=== PATIENT | female | born 2000 | race Asian ===

== ENCOUNTER 2022-11-29 05:01 | Emergency (ER) | payer BC, SELFPAY ==
[2022-11-29 05:08] VITALS: BP 121/73; PULSE 117; RESP 17; TEMP 37.4; O2SAT 96
--- NOTE | 2022-11-29 05:09 | ED.HA ---
HPI - Headache General Chief Complaint: Headache Stated Complaint: Migraine with Nausea Time Seen by Provider: 11/29/22 05:08 Source: patient Mode of arrival: ambulatory Limitations: no limitations History of Present Illness HPI Narrative: Patient with history of migraine headache been having headache since yesterday also feel congested with nausea and dizziness having body aches no cough patient already been vaccinated against COVID Related Data Previous Rx's Medication Instructions Recorded [id number]-prxzooktuccjt-nkxmbkis 1 cap PO Q6H PRN headache #20 caps 11/29/22 50 mg-300 mg-40 mg capsule (Fioricet) ondansetron 4 mg disintegrating 4 mg PO Q6-8H PRN nausea and 11/29/22 tablet vomiting #10 tabs sumatriptan succinate 50 mg tablet 50 mg PO Q2H PRN migraine headache 11/29/22 (Imitrex) #10 tabs Allergies Allergy/AdvReac Type Severity Reaction Status Date / Time No Known Allergies Allergy Verified 11/29/22 05:09 Review of Systems Review of Systems: Yes all other systems are reviewed and are negative [facility] Social History Social History Alcohol intake: never Smoked in Last 30 Days: No Use of substances other than those prescribed or required for medical reasons: No Advance Directives: No Patient : No Physical Exam Vital Signs: Vital Signs: Last Vital Signs Temp 99.4 F 11/29/22 05:12 Pulse 102 H 11/29/22 05:12 Resp 20 11/29/22 05:12 BP 121/73 11/29/22 05:12 Pulse Ox 97 11/29/22 05:12 O2 Del Method 11/29/22 05:12 BMI result Body Mass Index 21.8 Appearance: Alert. Oriented X3. No acute distress. Eyes: PERRLA, photosensitive ENT: Pharynx normal. Oral Mucosa moist Neck: Normal inspection. Neck supple. CVS: Normal heart rate and rhythm. Pulses normal. Respiratory: No respiratory distress. Equal air entry bilateral, no wheezing/rales/rhonchi Abdomen: Soft and nontender. Bowel sounds are present, no mass palpable, no CVA tenderness Skin: Skin warm and dry. Normal skin color. Normal skin turgor. Extremities: No lower extremity edema. No calf tenderness Neuro: Oriented X 3. No motor deficit. No sensory deficit.No cerebellar signs , cranial nerves II-XII intact Medications Administered Discontinued Medications Generic Name Dose Route Start Last Admin Trade Name Freq PRN Reason Stop Dose Admin Acetaminophen/Butalbital/Caffeine 1 tab 11/29/22 06:12 11/29/22 06:17 Butalb/Acetamin/Caff 50/325/40 Tablet PO 11/29/22 06:13 1 tab ONCE ONE Administration Ondansetron HCl 4 mg 11/29/22 05:09 11/29/22 05:28 Ondansetron Odt 4 Mg Tab.Rapdis TRANSLINGU 11/29/22 05:10 4 mg ONCE ONE Administration Sumatriptan Succinate 6 mg 11/29/22 05:09 11/29/22 05:29 Sumatriptan Succinate 6 Mg/0.5 Ml Vial SUBCUT 11/29/22 05:10 6 mg ONCE ONE Administration Medical Decision Making Medical Decision Making MDM Narrative: Patient felt better after Imitrex will discharge patient home on Imitrex and Fioricet Lab Data [facility] Lab Attestation statement: I reviewed the patient's lab results. Labs: Lab Results 11/29/22 11/29/22 Range/Units 05:19 05:19 COVID-19 (MICHELINE) Positive A (Negative) COVID-19 Clin Com See Note Influenza Type A (AYDIN) Negative (Negative) Influenza Type B (AYDIN) Negative (Negative) Influenza A & B Note See Note Discharge Plan Discharge Clinical Impression: Migraine, COVID-19 Patient Disposition: Home, Self-Care Instructions: Migraine Headache (ED), COVID-19 (Coronavirus Disease 2019) (ED) Additional Instructions: Social distancing advise Medication as prescribed for headache Prescriptions: New sumatriptan succinate [Imitrex] 50 mg tablet 50 mg PO Q2H PRN (Reason: migraine headache) Qty: 10 0RF Rx Instructions: do not exceed 2 doses per 24 hrs iudvfasird-dolixgwtfwojo-wxsg [Fioricet] 50-300-40 mg capsule 1 cap PO Q6H PRN (Reason: headache) Qty: 20 0RF ondansetron 4 mg tablet,disintegrating 4 mg PO Q6-8H PRN (Reason: nausea and vomiting) Qty: 10 0RF Stand Alone Forms: Work/School Release Interventions: ED Discharge Assessment Last Done: 11/29/22 06:27 Discharge Date/Time: 11/29/22 06:28
[2022-11-29 05:12] VITALS: BP 121/73; BP 130/88; PULSE 102; PULSE 82; RESP 20; TEMP 37.4; O2SAT 100; O2SAT 97; BMI 21.8
[2022-11-29] MEDS: Ondansetron ODT 4 MG TAB.RAPDIS TRANSLINGU (05:28)
[2022-11-29] MEDS: SUMAtriptan succinate 6 MG/0.5 ML VIAL SUBCUT (05:29)
[2022-11-29 05:37] LABS: COVID-19 Test Positive (Negative); IDNOW Serial# BCCEAD1C
[2022-11-29 05:41] LABS: IDNOW Serial# 16C4AD1C; Influenza A Negative (Negative); Influenza B2 Negative (Negative)
[2022-11-29] MEDS: Butalb/Acetamin/Caff 50/325/40 TABLET 1 TAB PO (06:17)
--- NOTE | 2022-11-29 06:22 | PC.NURSE ---
Pt. resting quietly in bed. Pt. reports continued headache with little to no relief from the imitrex. Pt. medicated with fiorecet per JAN. Pt. pending d/c at this time.
== END 2022-11-29 06:28 | disposition home or self-care (01) ==
PROVIDERS: Emergency Provider Internal Medicine
DX: U07.1 COVID-19 (principal); G43.909 Migraine, unspecified, not intractable, without status migrainosus
CPT/HCPCS: 87502; 87635; 96372; 99284; J3030

== ENCOUNTER 2024-08-11 00:14 | Emergency (ER) | payer BC, SELFPAY ==
[2024-08-11 00:18] VITALS: BP 100/70; PULSE 90; O2SAT 99
[2024-08-11 00:20] VITALS: BP 128/78; PULSE 110; RESP 18; TEMP 37.4; O2SAT 98; BMI 20.6
[2024-08-11 01:10] LABS: Influenza A PCR NEGATIVE (Negative); Influenza B PCR NEGATIVE (Negative); Resp Syncy Virus RNA Qual PCR NEGATIVE (Negative); SARS COV2 PCR INHOUSE NEGATIVE (Negative)
[2024-08-11 01:51] VITALS: BP 120/68; PULSE 110; RESP 16; TEMP 37.1; O2SAT 95
--- NOTE | 2024-08-11 04:50 | ED.URI ---
HPI - URI/Sore Throat General Chief Complaint: Upper Respiratory Symptoms Stated Complaint: COVID FLU LIKE SYMTOMS Time Seen by Provider: 08/11/24 04:40 Source: patient Mode of arrival: ambulatory Limitations: no limitations History of Present Illness ED Provider: Dr. Ruchi Tay HPI Narrative: Patient comes to emergency room complaining of URI symptoms, including sore throat, bilateral eye irritation, generalized malaise. Complaining of nausea, no vomiting or diarrhea. Related Data Previous Rx's ?Medication ?Instructions ?Recorded ohzkbhkmqb-mdousohbrsjye-ojrxxzfj 1 cap PO Q6H PRN headache #20 caps 11/29/22 50 mg-300 mg-40 mg capsule (Fioricet) ondansetron 4 mg disintegrating 4 mg PO Q6-8H PRN nausea and 11/29/22 tablet vomiting #10 tabs sumatriptan succinate 50 mg tablet 50 mg PO Q2H PRN migraine headache 11/29/22 (Imitrex) #10 tabs ibuprofen 600 mg tablet 600 mg PO Q8H PRN fever or pain 08/11/24 #20 tabs ondansetron HCl 4 mg tablet 4 mg PO Q6H PRN nausea and 08/11/24 vomiting #14 tabs Allergies Allergy/AdvReac Type Severity Reaction Status Date / Time No Known Allergies Allergy Verified 08/11/24 00:21 Review of Systems Review of Systems: Constitutional : No Weight loss, No Fever, No Chills, No Night Sweats, No Fatigue, complaining of generalized malaise ENT/Mouth : No Hearing loss, No Ear Pain, denies nasal congestion, complaining of sore throat, Eyes: No Eye Pain, No Swelling, No Redness, No Foreign Body, No Discharge, No Vision Changes Cardiovascular : No Chest Pain, No SOB, No Dyspnea on Exertion, No Orthopnea, No Edema, No Palpitations Respiratory : No Cough, No Sputum, No Wheezing, No Smoke Exposure, No Dyspnea Gastrointestinal : No Nausea, No Vomiting, No Diarrhea, No Constipation, No abdominal Pain, No Hematochezia, No Melena Genitourinary : no irregular bleeding, No Dysuria, No Urinary Frequency, No Hematuria, No Urinary Incontinence, No Urgency, No Flank Pain, No Urinary Flow Changes, No Hesitancy Musculoskeletal : No joint pain, No Myalgias, No Joint Swelling Skin : No Skin Lesions, No rash Neuro : No Weakness, No Numbness, No Paresthesias, No Loss of Consciousness, No Dizziness, No Headache Psych : No Anxiety/Panic, No Depression, No SI/HI/AH/VH, No Social Issues, Heme/Lymph: No Bruising, No Bleeding,No Lymphadenopathy Endocrine : No Polyuria, No Polydipsia, No Temperature Intolerance PMF Social History Social History Alcohol intake: never Smoked in Last 30 Days: No Use of substances other than those prescribed or required for medical reasons: No Advance Directives: No Advance Directives Information Provided: No Do you have a plan to hurt others: No Plan Physical Exam Vital Signs: Vital Signs: Last Vital Signs Temp 98.3 F 08/11/24 04:57 Pulse 97 08/11/24 04:57 Resp 18 08/11/24 04:57 BP 100/56 L 08/11/24 04:57 Pulse Ox 99 08/11/24 05:00 O2 Del Method Room Air 08/11/24 05:00 BMI result Body Mass Index 20.6 Const: Other: Appearance: Alert. Oriented X3. No acute distress. Eyes: Pupils equal, round and reactive to light. ENT: Pharynx is erythematous, no obvious abscesses. Neck: Normal inspection. Neck supple. No lymph nodes noted. No crepitus CVS: Normal heart rate and rhythm. Pulses normal. Normal S1 and S2 Respiratory: No respiratory distress. Breath sounds normal. No Wheezing. No rales Abdomen: Soft and nontender. No rigidity. No distention. Skin: Skin warm and dry. Normal skin color. Normal skin turgor. Extremities: No lower extremity edema. No Lacerations. No Rash Neuro: Oriented X 3. No motor deficit. No sensory deficit. Moving all extremities. No slurred speech. CN 2 through 12 grossly intact Psych: calm, cooperative, normal affect Course Course Course Narrative: Patient was given acetaminophen, Zofran p.o. Medications Administered Discontinued Medications Generic Name Dose Route Start Last Admin Trade Name Freq PRN Reason Stop Dose Admin Acetaminophen 975 mg 08/11/24 04:47 08/11/24 04:53 Acetaminophen 325 Mg Tablet PO 08/11/24 04:48 975 mg ONCE ONE Administration Ondansetron HCl 4 mg 08/11/24 04:47 08/11/24 04:54 Ondansetron Odt 4 Mg Tab.Kristen VENCES 08/11/24 04:48 4 mg ONCE ONE Administration Medical Decision Making Medical Decision Making [facility] Narrative: My interpretation of labs, patient tested negative for flu, COVID and RSV, strep test negative -patient likely has a viral syndrome Differential Diagnosis Differential Diagnoses: The differential diagnosis associated with the presentation includes (Viral illness, strep, COVID) Lab Data [facility] Lab Attestation statement: I reviewed the patient's lab results. Labs: Lab Results 08/11/24 08/11/24 Range/Units 00:26 04:52 Influenza Type A (PCR) NEGATIVE (Negative) Influenza Type B (PCR) NEGATIVE (Negative) RSV RNA Qual (PCR) NEGATIVE (Negative) SARS-CoV-2 RNA (RT-PCR) NEGATIVE (Negative) S. pyogenes GrpA AYDIN Negative (Negative) Discharge Plan Discharge Clinical Impression: Acute viral syndrome Patient Disposition: Home, Self-Care Instructions: Viral Syndrome (ED) Additional Instructions: Please follow-up with your primary care physician tomorrow. If you have any worsening or new symptoms, please return to the emergency room or call 911 Prescriptions: New ibuprofen 600 mg tablet 600 mg PO Q8H PRN (Reason: fever or pain) Qty: 20 0RF ondansetron HCl 4 mg tablet 4 mg PO Q6H PRN (Reason: nausea and vomiting) Qty: 14 0RF No Action sumatriptan succinate [Imitrex] 50 mg tablet 50 mg PO Q2H PRN (Reason: migraine headache) Qty: 10 0RF Rx Instructions: do not exceed 2 doses per 24 hrs rxoqpreuyw-rtofutryjgieb-jxqg [Fioricet] 50-300-40 mg capsule 1 cap PO Q6H PRN (Reason: headache) Qty: 20 0RF ondansetron 4 mg tablet,disintegrating 4 mg PO Q6-8H PRN (Reason: nausea and vomiting) Qty: 10 0RF Print Language: Czech
[2024-08-11] MEDS: Acetaminophen 325 MG TABLET 975 MG PO (04:53)
[2024-08-11] MEDS: Ondansetron ODT 4 MG TAB.RAPDIS TRANSLINGU (04:54)
[2024-08-11 04:57] VITALS: BP 100/56; PULSE 87; RESP 18; TEMP 36.8; O2SAT 99
[2024-08-11 05:00] VITALS: O2SAT 99
[2024-08-11 05:13] LABS: IDNOW Serial# 6674DD1D; Strep A Nucleic Acid Negative (Negative)
[2024-08-11 05:42] VITALS: BP 100/56; PULSE 87; RESP 18; TEMP 36.8; O2SAT 99
== END 2024-08-11 05:43 | disposition home or self-care (01) ==
PROVIDERS: Emergency Provider Emergency Medicine
DX: B34.9 Viral infection, unspecified (principal); J02.9 Acute pharyngitis, unspecified; Z03.818 Encounter for observation for suspected exposure to other biological agents ruled out; Z79.899 Other long term (current) drug therapy
CPT/HCPCS: 0241U; 87651; 99283; 99284

== ENCOUNTER 2024-12-01 13:48 | Emergency (ER) | payer BC, SELFPAY ==
--- NOTE | ~2024-12-01 | XR_ITS ---
EXAMINATION: XR LUMBOSACRAL SPINE CLINICAL INFORMATION: fall onto back COMPARISON: None available. TECHNIQUE: Three views of the lumbosacral spine. FINDINGS: S-shaped curvature of the thoracolumbar spine. No acute cortical disruption or gross malalignment. No lytic or blastic lesions. Spina bifida occulta, S1.. XR/XR lumbar spine 2-3V IMPRESSION: Scoliosis without acute fracture or trauma-related listhesis. Electronically signed by: Syed Ramon MD 12/01/2024 03:39 PM JASWINDER PITT
--- NOTE | ~2024-12-01 | XR_ITS ---
EXAMINATION: XR SACRUM AND COCCYX CLINICAL INFORMATION: fall onto back COMPARISON: None available. TECHNIQUE: 2 views of the sacrum and 2 views of the coccyx were obtained. FINDINGS: No acute cortical disruption or gross malalignment. No lytic or blastic lesions. Scoliosis in the lumbar spine. XR/XR sacrum coccyx min 2V IMPRESSION: No acute fracture, sacrococcyx. Electronically signed by: Syed Ramon MD 12/01/2024 03:40 PM JASWINDER
[2024-12-01 14:55] VITALS: BP 113/74; PULSE 70; RESP 16; TEMP 37; O2SAT 100; BMI 21.5
--- NOTE | 2024-12-01 14:56 | ED_ITS ---
HPI - Back Pain/Injury General Chief Complaint: Fall Stated Complaint: Pain Fall Down Stairs 12/01/24 Time Seen by Provider: 12/01/24 16:01 Source: patient Mode of arrival: ambulatory Limitations: no limitations History of Present Illness HPI Narrative: This is a 24-year-old woman with no reported past medical or surgical history who presents for evaluation of her a fall. Patient states she slipped and fell down a few steps this morning. She reports that she landed on her buttocks. She reports pain in her lower back and buttocks. She states no associated head strike or loss of consciousness. She states no associated chest pain or dyspnea. She states taking no anticoagulant medications. She states no abdominal pain, nausea or vomiting. She states no incontinence of stool or urine. She states no spinal surgery history. She states no lower extremity weakness or paresthesias. She states no urinary retention or obstipation. She states no illicit or recreational drug use. Related Data Previous Rx's ?Medication ?Instructions ?Recorded wwpawsfsor-ivrijtltnfqth-zyrrguhi 1 cap PO Q6H PRN headache #20 caps 11/29/22 50 mg-300 mg-40 mg capsule (Fioricet) ondansetron 4 mg disintegrating 4 mg PO Q6-8H PRN nausea and 11/29/22 tablet vomiting #10 tabs sumatriptan succinate 50 mg tablet 50 mg PO Q2H PRN migraine headache 11/29/22 (Imitrex) #10 tabs ibuprofen 600 mg tablet 600 mg PO Q8H PRN fever or pain 08/11/24 #20 tabs ondansetron HCl 4 mg tablet 4 mg PO Q6H PRN nausea and 08/11/24 vomiting #14 tabs Allergies Allergy/AdvReac Type Severity Reaction Status Date / Time No Known Allergies Allergy Verified 12/01/24 14:57 Review of Systems Review of Systems: ROS as per HPI [facility] Social History Social History Alcohol intake: never Physical Exam Vital Signs: Vital Signs: Last Vital Signs Temp 98.6 F 12/01/24 14:55 Pulse 70 12/01/24 14:55 Resp 16 12/01/24 14:55 BP 113/74 12/01/24 14:55 Pulse Ox 100 12/01/24 14:55 O2 Del Method Room Air 12/01/24 14:55 BMI result Body Mass Index 21.5 Gen: NAD, AOx3 HEENT: NCAT, EOMI, normal conjunctiva CV: RRR, no murmurs appreciated Pulm: CTAB, no increased work of breathing GI: Soft, NTND, no rebound, guarding or rigidity MSK: No midline vertebral tenderness to palpation or overlying skin changes, 5/5 bilateral lower extremity strength Neuro: Grossly non focal, GCS 15, sensation intact to light touch in bilateral lower extremities Skin: Warm, dry Course Course Course Narrative: This is a Rapid Medical Examination (RME) performed by Magda Caro PA-C in triage. Full HPI, ROS, assessment and treatment plan per primary provider in the Main ED. 24 yo female here for eval of tail bone pain s/p mechanical slip and fall down stairs, landing on her bottom. no head strike. no LOC. no thinners. no red flag sx. took motrin around 1130. + ttp along midline lumbar spine/ sacrum Plan: xr Medical Decision Making Medical Decision Making [facility] Narrative: Differential diagnosis includes, but is not limited to strain, sprain, contusion. Patient is afebrile and hemodynamically stable on room air. Exam is benign and reassuring. Patient has no neurological deficits. Further, she has no ?red flag? symptoms associated with her back pain. On re-examination, patient is well-appearing and in no acute distress. There is no indication for further emergent evaluation in this otherwise well-appearing patient as above. ?Patient is provided written and verbal instructions, educational materials, recommendations for outpatient follow-up, strict return precautions and teach back is performed. ?Patient states understanding and agreement with plan of care. ?Patient is discharged home in stable and improved condition. Admission/Observation Consideration of admission/observation: Escalation of care including admission/observation considered Discharge Plan Discharge Clinical Impression: Fall Patient Disposition: Home, Self-Care Instructions: Fall Prevention (ED) Additional Instructions: You were seen and evaluated in the emergency room. Your vital signs were reassuring. Your x-rays show no broken or dislocated bones. Please take 600 mg ibuprofen every 6 hours with food and water as needed for pain. You may take 1000 mg Tylenol every 8 hours as needed for additional pain relief. Please follow-up with your primary care doctor in the next 5-7 days. ? Please return to the emergency room if you develop any worsening symptoms or injuries. Prescriptions: No Action sumatriptan succinate [Imitrex] 50 mg tablet 50 mg PO Q2H PRN (Reason: migraine headache) Qty: 10 0RF Rx Instructions: do not exceed 2 doses per 24 hrs tfpmsqbaop-cxzyrhjpxdfhe-gxcw [Fioricet] 50-300-40 mg capsule 1 cap PO Q6H PRN (Reason: headache) Qty: 20 0RF ondansetron 4 mg tablet,disintegrating 4 mg PO Q6-8H PRN (Reason: nausea and vomiting) Qty: 10 0RF ibuprofen 600 mg tablet 600 mg PO Q8H PRN (Reason: fever or pain) Qty: 20 0RF ondansetron HCl 4 mg tablet 4 mg PO Q6H PRN (Reason: nausea and vomiting) Qty: 14 0RF Stand Alone Forms: Work/School Release Print Language: Georgian
[2024-12-01] MEDS: Acetaminophen 325 MG TABLET 975 MG PO (16:31)
[2024-12-01] MEDS: Lidocaine 4 % Patch ADH..PATCH 1 PATCH TRANSDERMA (16:32)
[2024-12-01 16:36] VITALS: BP 113/74; PULSE 70; RESP 16; TEMP 37; O2SAT 100
--- OUTSIDE RECORDS SUMMARY | 2024-12-01 17:47 | XMS_ITS | Data Portability ---
Author Organization [facility], [facility] Address [address] [place] [address] Assessment No assessment recorded. Plan of Treatment Reminders Order Date Submit Date Provider Last Modified By Organization Details Last Modified Time Details Appointments None recorded. Lab vaginal pathogens panel, MICHELINE+probe, vaginal fluid 2022 023 [facility], [address] [facility], [facility] [address], [address], 15:07:11 Referral None recorded. Procedures None recorded. Surgeries None recorded. Imaging None recorded. Medication Orders Sprintec (28) 0.25 mg-35 mcg tablet 2022 023 [id number], [address] [place], [address], 17:07:47 Patient TargetsNo targets recorded. Patient InstructionsNo instructions recorded. Reason for Referral None Reported. Results Created Date Observation Date Name Description Value Unit Range Abnormal Flag Note LastModifiedBy Organization Detail LastModifiedTime 06/17/2006/20/2023 NUSWA B VAGIN ITIS PLUS (VG+) atopobium vaginae Low - 0 score Not Available [facility] ([facility]) [address], [place], [address], 06/20/2023 15:07:11 06/17/2006/20/2023 NUSWA B VAGIN ITIS PLUS (VG+) bvab 2 Low - 0 score Not Available [facility] ([facility]) [address], [place], [address], 06/20/2023 15:07:11 06/17/20 23 06/20/2023 NUSWA B VAGIN ITIS PLUS (VG+) megasphaera 1 Low - 0 score Calcu late total score by jean-claude anaya the 3 indiv idual bacte rial vagin osis (BV) marke r score s toget her. Total score is inter prete d as follo ws: Total score 0-1: Indic ates the absen ce of BV. Total score 2: Indet ermin ate for BV. Addit ional clini rodolfo data shoul d be evalu ated to estab jaxson a diagn osis. Total score 3-6: Indic ates the prese nce of BV. This test was devel oped and its perfo rmanc e bucky cteri stics deter mined by [facility]. It has not been clear ed or appro anne marie by the Food and Drug Admin istra tion. Not Available [facility] ([facility]) [address], [place], [address], 06/20/2023 15:07:11 06/17/20 23 06/20/2023 NUA B VAGIN ITIS PLUS (VG+) nick albicans, MICHELINE Negati ve negati ve Not Available [facility] ([facility]) [address] [place], [address], 06/20/2023 15:07:11 06/17/20 23 06/20/2023 NUSWA B VAGIN ITIS PLUS (VG+) nick glabrata, MICHELINE Negati ve negati ve Not Available [facility] ([facility]) [address] [place], [address], 06/20/2023 15:07:11 06/17/20 23 06/20/2023 NUSWA B VAGIN ITIS PLUS (VG+) trich vag by MICHELINE Negati ve negati ve Not Available [facility] ([facility]) [address] [place], [address], 06/20/2023 15:07:11 06/17/20 23 06/20/2023 NUSWA B VAGIN ITIS PLUS (VG+) chlamydia trachomatis, MICHELINE Negati ve negati ve Not Available [facility] ([facility]) [address], [place], [address], 06/20/2023 15:07:11 06/17/20 23 06/20/2023 NUA B VAGIN ITIS PLUS (VG+) neisseria gonorrhoeae, MICHELINE Negati ve negati ve Not Available [facility] ([facility]) [address], [place], [address], 06/20/2023 15:07:11 Result Notes None recorded. Problems No Known Problems Medical Equipment None Reported. Allergies No known drug allergies Medications Name Sig Start Date Stop Date Status Note LastModified by Organization Details LastModified Time ketoconazol e 2 % shampoo APPLY 2-3X WEEKLY TO SCALP, LET SIT PRIOR TO RINSING. active Not Available Not Available No t Available sumatriptan 50 mg tablet TAKE 1 TAB ORALLY EVERY 2 HOURS NEEDED FOR MIGRAINE HEADACHE DO NOT EXCEED 2 DOSES PER 24 HRS 06/17 completed Not Available Not Available Not Available fluocinonid e 0.05 % topical ointment APPLY TO AFFECTED AREAS ON THE BODY TWICE A DAY X 2 WEEKS MAXIMUM. active Not Available Not Available No t Available hydrocortis one 2.5 % topical ointment APPLY TWICE A DAY TO AFFECTED AREAS ON FACE X 2 WEEKS MAXIMUM. active Not Available Not Available No t Available ondansetron 4 mg disintegrat ing tablet TAKE 1 TAB ORALLY EVERY 6 TO 8 HOURS NEEDED FOR NAUSEA AND VOMITING 06/17 completed Not Available Not Available Not Available butalbital- acetaminoph en-caffeine 50 mg-300 mg-40 mg capsule TAKE 1 CAP ORALLY EVERY 6 HOURS NEEDED FOR HEADACHE active Not Available Not Available No t Available Estarylla 0.25 mg-35 mcg tablet TAKE 1 TABLET BY MOUTH EVERY DAY DIRECTED active Not Available Not Available No t Available Vitals Date Recorded Body height Provider Name an d Address Organization Details Last Updated DateTime 06/17/2023 162.56 cm Valentine [facility] 16:49:41 Date Recorded Body mass index (BMI) Percentile per age and sex Body mass index (BMI) Body weight Provider Name and Address Organization Details Last Updated DateTime 06/17/2023 47 % 21.5 kg/m2 12720.05 g Valentine Ty [facility] 06/17/2023 16:49:48 Date Recorded Heart rate Provider Name an d Address Organization Details Last Updated DateTime 06/17/2023 102 /min Valentinejazmin Ty [facility] 16:52:43 Date Recorded Systolic blood pressure Diastolic blood pressure Provider Name and Address Organization Details Last Updated DateTime 06/17/2023 116 mm[Hg] 74 mm[Hg] Valentinejazmin Ty [facility] 06/17/2023 16:52:41 Social History Question Answer Notes LastModified by Organizat [employer] Details LastModified Time Tobacco Smoking Status Never Smoker Valentine [facility] 06/17/2023 16:48:25 Is Blood Transfusion Acceptable In An Emergency? Yes [email or web address] Information not available 06/17/2023 Are You Currently Employed? No [email or web address] Information not available 06/17/2023 What Type Of Diet Are You Following? REGULAR [email or web address] Information not available 06/17/2023 What Was The Date Of Your Most Recent Tobacco Screening? 06/17/2023 [email or web address] Information not available 06/17/2023 What Is Your Relationship Status? Single [email or web address] Information not available 06/17/2023 Sex: Unknown Functional Status Question Answer Note LastModified by Organizat ion Details LastModified Time What is your exercise level? Occasional [email or web address] Information not available 06/17/2023 Mental Status None recorded. Family History Relationship Description Onset Age of this Age Resolved Age Notes LastModified by Organization Details LastModified Time Father Well adult [email or web address] Not carrie ilable 06/17/2023 16:51:42 Mother Well adult [email or web address] Not carrie ilable 06/17/2023 16:51:42 Brother Well adult [email or web address] Not av ailable 06/17/2023 16:51:42 Notes:no fam hx of pipe tester of co [place] Medical History No medical history recorded. Gynecological History Statement/Question Response Flow Moderate Date of Last Mammogram Date of LMP 06/14/2023 STIs/STDs N Duration of Flow (days) 7 Age at Menarche 16 Bleeding between periods? N Frequency of Cycle (Q days) 21 Most Recent Bone Density Sexually Active? Y Menses Monthly Y Date of Colonoscopy (If over 50)? Sexual Problems? Y Obstetrics History GPAL:G 0 P 0 0 0 0 Past Encounters Encounter ID Performer Location Encounter Start Date Encounter Closed Date Diagnosis/Indication Diagnosis SNOMED-CT Code Diagnosis ICD10 Code Diagnosis Note [id number] Luis delgado MD [place] [address] [place] [address] 06/17/2023 16:43:31 06/17/2023 17:16:38 Pain in pelvis 34335852 R10.2 Cyst of left ovary 46596 16574 1141076 N83.202 --on 05/14/23 pt had TVUS in [place] that showed a small left ovarian corpus luteum cyst; on exam today still appreciate d. Pt is returning to school and will do rpt TVUS there. She will call me when she has the results.-- we talked about a trial of OCP's and she would like to try them. Sent to pharmacy. Vaginitis 82229422 N76.0 --pt desires STI testing- cultures done. will call pt if abnormal results. Health Concerns Section Related Observation LastModified by Organization Detai ls LastModified Time None Recorded Concern Status LastModified by Organization Details LastModified Time None Recorded Advance Directives Directive None Recorded Payers Encounter Date Sequence Insurance Name Policy Number Policy [place] Covered Member ID Cabello Member ID Guarantor Name 06/17/2023 1 [facility] [id number] Hansa Bruner [id number] Hansa Bruner Notes Date Note Type Note Provider Name and Address Organization Details Recorded Time 06/17/2023 text/html Pt presents for evaluation of pelvic pain secondary to left ovarian cyst 2-3cm diagnosed in [place] while she was in a summer program. US report reviewed and it was a corpus luteum cyst. Pt desires STI testing. Pt is using NSAID's, but no relief of bloating sensation. We talked about OCP's for mx of dysmenorrhea and prevent any further cyst formation. No further complaints. Luis marino MD [address], [place], [address], [facility] 06/17/2023 17:12:33 OBGyn Episode No OBEpisode recorded.
== END 2024-12-01 16:37 | disposition home or self-care (01) ==
PROVIDERS: Emergency Provider Emergency Medicine
DX: S39.92XA Unspecified injury of lower back, initial encounter (principal); M53.3 Sacrococcygeal disorders, not elsewhere classified; W10.9XXA Fall (on) (from) unspecified stairs and steps, initial encounter; Y93.9 Activity, unspecified; Y92.9 Unspecified place or not applicable; Y99.8 Other external cause status
CPT/HCPCS: 72100; 72220; 99283

== ENCOUNTER → 2024-12-01 14:56 | Outpatient (BNV) | payer BC, SELFPAY | PROVIDERS: Emergency Provider Emergency Medicine; Visit Provider Radiology Diagnostic Radiology | DX: M41.9 Scoliosis, unspecified (principal); S30.0XXA Contusion of lower back and pelvis, initial encounter | CPT/HCPCS: 72100; 72220 ==